=== PATIENT | male | born 1970 | race Two or more races ===

== ENCOUNTER 2020-08-06 13:54 | Emergency (ER) | payer OTHER ==
[~2020-08-06] VITALS: Ht 175.3 cm; Wt 69.0 kg
[2020-08-06] MEDS ORDERED: FLUORESCEIN OPHTHALMIC 1 MG STRIP ONE (14:13)
[2020-08-06] MEDS ORDERED: PROPARACAINE OPHTH 0.5%, 15ML ONE (14:13)
--- NOTE | 2020-08-06 14:25 | NUR ---
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 LEFT EYE IS BLOODSHOT, SCLERA CLOUDED. PT IS PRIMARILY UZBE[employer] SPEAKING, ASSEMBLER MOLDED FRAMES UTILIZED FOR ASSESSMENT AND EDUCATION. PT A&O, RESPS EVEN AND UNLABORED, NADN. ALVA SHI AT BEDSIDE FOR EYE EXAM.
[2020-08-06 15:37] VITALS: BP 132/92
--- NOTE | 2020-08-06 15:49 | NUR ---
VA's done by EDT. PT was not able to read even 20/200 to with left eye only, hence [facility] not [facility]. right eye 20/70, both eyes 20/200. ALVA Prasad notified. pt given dc instructions and script, educated using medical scribe. pt a&o, resps even and unlabored, given OP follow up to opthomologist and instructions to follow up in 2 days, pt verbalizes understanding. pt ambulatory to dc desk with steady gait. all questions answered.
== END 2020-08-06 15:50 | disposition home or self-care (01) ==
LOC: ED 14:56
DX: H16.8 Other keratitis (principal)
CPT/HCPCS: 70480; 99284